=== PATIENT | female | born 1965 | race Caucasian/White ===

== ENCOUNTER 2018-07-02 12:38 | Emergency (ER) | payer OTHER ==
[~2018-07-02] VITALS: Ht 167.6 cm; Wt 77.1 kg
[2018-07-02] MEDS ORDERED: MOBIC15 MG PO (13:06)
[2018-07-02] MEDS ORDERED: NORCO 5-325 TA1 EACH PO (13:07)
[2018-07-02] MEDS ORDERED: MICROGESTIN FE1 EAC1 PO (13:07)
[2018-07-02] MEDS ORDERED: LIDODERM1 EACH TOP (13:26)
[2018-07-02 13:56] VITALS: BP 126/87
== END 2018-07-02 13:57 | disposition home or self-care (01) ==
LOC: ER 12:38
DX: M54.5 Low back pain (principal); G89.29 Other chronic pain; M25.552 Pain in left hip; Z96.642 Presence of left artificial hip joint; Z88.8 Allergy status to other drugs, medicaments and biological substances